=== PATIENT | female | born 1955 | race Caucasian/White ===

== ENCOUNTER 2016-09-20 12:55 | Emergency (ER) | payer BC ==
[2016-09-20] MEDS ORDERED: SODIUM CHLORIDE 0.9% 1,000 ML IV STA (13:04)
[2016-09-20 13:05] LABS: Glucose,Whole Blood 183 mg/dL (75-99)
--- NOTE | 2016-09-20 13:11 | ED ---
Seizure HPI - General Stated Complaint: seizure Time Seen by Provider: 09/20/16 12:55 Source: patient, family, EMS, RN notes reviewed Mode of arrival: EMS - History of Present Illness Initial Comments: This is a 61-year-old female with a history of insulin-dependent diabetes was shopping with her mother and a local store. She felt somewhat weak and did apparently put a hard candy in her mouth. She'll thereafter however she started becoming very weak and was helped out of the floor by her mother. She then had what appeared to be a tonic-clonic seizure-like episode lasting 3-4 minutes per witnesses. He was full-body. EMS was called and she was brought here for evaluation. Initial glucose per EMS was 70. She was post ictal per paramedics. She started responding more appropriately since her arrival to the hospital by ambulance. He currently is awake and alert but still confused to date and time she does know place. She does not know if she ate breakfast this morning or not. She is now she took her medications at this time. No trauma is reported. Per the mother the patient does have a history of a brain aneurysm it was apparently stable over multiple evaluations. MD Complaint: seizure, shaking, other - Related Data Home Medications Medication Instructions Recorded Confirmed Aspirin 325 mg PO DAILY 09/20/16 09/20/16 Cholecalciferol [Vitamin D3] 1,000 unit PO DAILY 09/20/16 09/20/16 DULoxetine HCL [Cymbalta] 60 mg PO HS 09/20/16 09/20/16 Insulin Glargine [Lantus] 50 unit SQ HS 09/20/16 09/20/16 Insulin Lispro [humaLOG Kwikpen] 50 unit SQ TID-W/MEALS 09/20/16 09/20/16 Levothyroxine Sodium [Synthroid] 125 mcg PO DAILY 09/20/16 09/20/16 Lisinopril [Prinivil] 5 mg PO DAILY 09/20/16 09/20/16 Multivitamins, Thera [Multivitamin 1 tab PO DAILY 09/20/16 09/20/16 (formulary)] [place]-3 Fatty Acids/Fish Oil [Fish 1 cap PO DAILY 09/20/16 09/20/16 Oil 1,000 mg Softgel] Rosuvastatin Calcium [Crestor] 5 mg PO HS 09/20/16 09/20/16 metFORMIN HCL 1,000 mg PO BID 09/20/16 09/20/16 Allergies Allergy/AdvReac Type Severity Reaction Status Date / Time latex AdvReac Unknown Verified 09/20/16 13:54 Review of Systems ROS Statement: Those systems with pertinent positive or pertinent negative responses have been documented in the HPI. ROS Other: All systems not noted in ROS Statement are negative. General Exam - General Exam Comments Initial Comments: This is a well-developed well-nourished awake alert but confused female General appearance: alert, anxious Head exam: Present: atraumatic, normocephalic, normal inspection Eye exam: Present: normal appearance, PERRL, EOMI. Absent: scleral icterus, conjunctival injection, periorbital swelling ENT exam: Present: mucous membranes moist, other (Ecchymosis a left side of the thumb consistent with a bite mk) Neck exam: Present: normal inspection. Absent: tenderness, meningismus, lymphadenopathy Respiratory exam: Present: normal lung sounds bilaterally. Absent: respiratory distress, wheezes, rales, rhonchi, stridor Cardiovascular Exam: Present: regular rate, normal rhythm, normal heart sounds. Absent: systolic murmur, diastolic murmur, rubs, gallop, clicks GI/Abdominal exam: Present: soft, normal bowel sounds. Absent: distended, tenderness, guarding, rebound, rigid Extremities exam: Present: normal inspection, full ROM, normal capillary refill. Absent: tenderness, pedal edema, joint swelling, calf tenderness Back exam: Present: tenderness, other (Multiple superficial abrasions noted over the back especially the right side. No step-off no crepitation no open wounds that will require repair.) Neurological exam: Present: alert, altered, CN II-XII intact Psychiatric exam: Present: anxious Skin exam: Present: warm, dry, intact, normal color. Absent: rash Course Vital Signs 09/20/16 09/20/16 09/20/16 13:09 14:09 15:11 Temperature 98.5 F 99.1 F Pulse Rate 114 H 97 82 Respiratory 22 18 18 Rate Blood Pressure 174/90 156/74 147/65 O2 Sat by Pulse 95 96 98 Oximetry - Reevaluation(s) Reevaluation #1: 09/20/16 16:29 Patient is fully become more aware of her surroundings and became awake alert oriented 3. Medical Decision Making - Medical Decision Making Evaluation of the patient finds be awake alert oriented history she is in full remembered severity to happen today. She states she only had a banana for breakfast today. The presentation is consistent with a hypoglycemic etiology of the events. I long discussion with the patient family member the patient will follow-up with her doctor I did advise and adequate diet and return if any problems. - Lab Data Result diagrams: 09/20/16 13:19 09/20/16 13:19 Lab Results 09/20/16 09/20/16 09/20/16 Range/Units 13:04 13:19 13:19 WBC 8.8 (3.8-10.6) k/uL RBC 4.66 (3.80-5.40) m/uL Hgb 14.8 (11.4-16.0) gm/dL Hct 45.9 (34.0-46.0) % MCV 98.4 (80.0-100.0) fL MCH 31.8 (25.0-35.0) pg MCHC 32.3 (31.0-37.0) g/dL RDW 12.8 (11.5-15.5) % Plt Count 284 (150-450) k/uL Neutrophils % 46 % Lymphocytes % 45 % Monocytes % 4 % Eosinophils % 2 % Basophils % 1 % Neutrophils # 4.1 (1.3-7.7) k/uL Lymphocytes # 4.0 (1.0-4.8) k/uL Monocytes # 0.3 (0-1.0) k/uL Eosinophils # 0.1 (0-0.7) k/uL Basophils # 0.1 (0-0.2) k/uL Sodium 141 (137-145) mmol/L Potassium 4.4 (3.5-5.1) mmol/L Chloride 106 (98-107) mmol/L Carbon Dioxide 17 L (22-30) mmol/L Anion Gap 18 mmol/L BUN 16 (7-17) mg/dL Creatinine 0.82 (0.52-1.04) mg/dL Est GFR (MDRD) Af Amer >60 (>60 ml/min/1.73 sqM) Est GFR (MDRD) Non-Af >60 (>60 ml/min/1.73 sqM) Glucose 157 H (74-99) mg/dL POC Glucose (mg/dL) 183 H (75-99) mg/dL POC Glu Data Officer ID Jeannie Ramey Calcium 9.8 (8.4-10.2) mg/dL Magnesium 2.0 (1.6-2.3) mg/dL Total Bilirubin 0.6 (0.2-1.3) mg/dL AST 50 H (14-36) U/L ALT 45 (9-52) U/L Alkaline Phosphatase 86 (38-126) U/L Total Creatine Kinase (30-135) U/L CK-MB (CK-2) (0.0-2.4) ng/mL CK-MB (CK-2) Rel Index Troponin I (0.000-0.034) ng/mL Total Protein 8.5 H (6.3-8.2) g/dL Albumin 4.8 (3.5-5.0) g/dL Urine Color Urine Appearance (Clear) Urine pH (5.0-8.0) Ur Specific [place] (1.001-1.035) Urine Protein (Negative) Urine Glucose (UA) (Negative) Urine Ketones (Negative) Urine Blood (Negative) Urine Nitrite (Negative) Urine Bilirubin (Negative) Urine Urobilinogen (<2.0) mg/dL Ur Leukocyte Esterase (Negative) Urine RBC (0-5) /hpf Urine WBC (0-5) /hpf Ur Squamous Epith Cells (0-4) /hpf Urine Bacteria (None) /hpf Hyaline Casts (0-2) /lpf Urine Opiates Screen (NotDetected) Ur Oxycodone Screen (NotDetected) Urine Methadone Screen (NotDetected) Ur Propoxyphene Screen (NotDetected) Ur Barbiturates Screen (NotDetected) U Tricyclic Antidepress (NotDetected) Ur Phencyclidine Scrn (NotDetected) Ur Amphetamines Screen (NotDetected) U Methamphetamines Scrn (NotDetected) U Benzodiazepines Scrn (NotDetected) Urine Cocaine Screen (NotDetected) U Marijuana (THC) Screen (NotDetected) Serum Alcohol <10 mg/dL 09/20/16 09/20/16 09/20/16 Range/Units 13:19 14:12 15:10 WBC (3.8-10.6) k/uL RBC (3.80-5.40) m/uL Hgb (11.4-16.0) gm/dL Hct (34.0-46.0) % MCV (80.0-100.0) fL MCH (25.0-35.0) pg MCHC (31.0-37.0) g/dL RDW (11.5-15.5) % Plt Count (150-450) k/uL Neutrophils % % Lymphocytes % % Monocytes % % Eosinophils % % Basophils % % Neutrophils # (1.3-7.7) k/uL Lymphocytes # (1.0-4.8) k/uL Monocytes # (0-1.0) k/uL Eosinophils # (0-0.7) k/uL Basophils # (0-0.2) k/uL Sodium (137-145) mmol/L Potassium (3.5-5.1) mmol/L Chloride (98-107) mmol/L Carbon Dioxide (22-30) mmol/L Anion Gap mmol/L BUN (7-17) mg/dL Creatinine (0.52-1.04) mg/dL Est GFR (MDRD) Af Amer (>60 ml/min/1.73 sqM) Est GFR (MDRD) Non-Af (>60 ml/min/1.73 sqM) Glucose (74-99) mg/dL POC Glucose (mg/dL) 84 (75-99) mg/dL POC Glu Data Officer ID James Payal Calcium (8.4-10.2) mg/dL Magnesium (1.6-2.3) mg/dL Total Bilirubin (0.2-1.3) mg/dL AST (14-36) U/L ALT (9-52) U/L Alkaline Phosphatase (38-126) U/L Total Creatine Kinase 299 H (30-135) U/L CK-MB (CK-2) 2.6 H* (0.0-2.4) ng/mL CK-MB (CK-2) Rel Index 0.9 Troponin I <0.012 (0.000-0.034) ng/mL Total Protein (6.3-8.2) g/dL Albumin (3.5-5.0) g/dL Urine Color Yellow Urine Appearance Clear (Clear) Urine pH 6.5 (5.0-8.0) Ur Specific [place] 1.015 (1.001-1.035) Urine Protein 1+ H (Negative) Urine Glucose (UA) Trace H (Negative) Urine Ketones Negative (Negative) Urine Blood Small H (Negative) Urine Nitrite Negative (Negative) Urine Bilirubin Negative (Negative) Urine Urobilinogen <2.0 (<2.0) mg/dL Ur Leukocyte Esterase Negative (Negative) Urine RBC 2 (0-5) /hpf Urine WBC 1 (0-5) /hpf Ur Squamous Epith Cells <1 (0-4) /hpf Urine Bacteria Rare H (None) /hpf Hyaline Casts 1 (0-2) /lpf Urine Opiates Screen Not Detected (NotDetected) Ur Oxycodone Screen Not Detected (NotDetected) Urine Methadone Screen Not Detected (NotDetected) Ur Propoxyphene Screen Not Detected (NotDetected) Ur Barbiturates Screen Not Detected (NotDetected) U Tricyclic Antidepress Not Detected (NotDetected) Ur Phencyclidine Scrn Not Detected (NotDetected) Ur Amphetamines Screen Not Detected (NotDetected) U Methamphetamines Scrn Not Detected (NotDetected) U Benzodiazepines Scrn Not Detected (NotDetected) Urine Cocaine Screen Not Detected (NotDetected) U Marijuana (THC) Screen Not Detected (NotDetected) Serum Alcohol mg/dL - EKG Data -: EKG Interpreted by Id EKG shows normal: sinus rhythm (Eyes tachycardia with a rate of 115, IN interval 154, QRS duration 74, QT/QTC intervals 332/459 this is an otherwise normal EKG.) - Radiology Data Radiology results: report reviewed (Did review the imaging and reports no acute findings there all stable.), image reviewed Disposition Clinical Impression: Hypoglycemia due to insulin, Seizure, Multiple abrasions Disposition: HOME SELF-CARE Condition: Good Instructions: New-Onset Seizure in Adults (ED), Hypoglycemia in a Person with Diabetes (ED), Abrasion (ED) Additional Instructions: Increase oral fluids, return if any problems, no driving for the next several days until cleared by Dr. Romano
[2016-09-20 13:38] LABS: Basophils # (A) 0.1 k/uL (0-0.2); Basophils % (A) 1 %; CH 32.1; CHCM 32.8; Eosinophils # (A) 0.1 k/uL (0-0.7); Eosinophils % (A) 2 %; HCT 45.9 % (34.0-46.0); HDW 2.43; HGB 14.8 gm/dL (11.4-16.0); Luc # (Auto) 0.21; Luc % (Auto) 2; Lymphocytes % (A) 45 %; MCH 31.8 pg (25.0-35.0); MCHC 32.3 g/dL (31.0-37.0); MCV 98.4 fL (80.0-100.0); Mean Platelet Volume 7.5; Monocytes # (A) 0.3 k/uL (0-1.0); Monocytes % (A) 4 %; Neutrophils # (A) 4.1 k/uL (1.3-7.7); Neutrophils % (A) 46 %; RBC 4.66 m/uL (3.80-5.40); RDW 12.8 % (11.5-15.5); WBC 8.8 k/uL (3.8-10.6); WBC (Perox) 8.63
[2016-09-20 13:54] LABS: ALT 45 U/L (9-52); AST 50 U/L (14-36); Alcohol <10 mg/dL; Alkaline Phosphatase 86 U/L (38-126); Anion Gap 18 mmol/L; Blood Urea Nitrogen 16 mg/dL (7-17); Calcium 9.8 mg/dL (8.4-10.2); Carbon Dioxide 17 mmol/L (22-30); Chloride 106 mmol/L (98-107); Glucose 157 mg/dL (74-99); Non-African American GFR(MDRD) >60 (>60 ml/min/1.73 sqM); Potassium 4.4 mmol/L (3.5-5.1); Sodium 141 mmol/L (137-145); Total Bilirubin 0.6 mg/dL (0.2-1.3); Total Protein 8.5 g/dL (6.3-8.2)
[2016-09-20 14:10] VITALS: RESP 18
[2016-09-20 14:10] LABS: Creatine Kinase 299 U/L (30-135)
--- NOTE | 2016-09-20 14:12 | CT ---
EXAMINATION TYPE: CT brain wo con DATE OF EXAM: 09/20/2016 2:07 PM COMPARISON: NONE HISTORY: 61 year-old female possible seizure TECHNIQUE: Examination was done in axial plane without intravenous contrast. Coronal and sagittal r econstructions performed. CT DLP: 1054.2 mGycm Automated exposure control for dose reduction was used. FINDINGS: There is no evidence of acute intracranial hemorrhage, acute ischemic changes, mass, mass-effect, or extra-axial fluid collection. There is no effacement of cerebral sulci or basal subarachnoid cister ns. There is no hydrocephalus. Slight asymmetric prominence to the left lateral ventricle likely on a congenital basis. There is no midline shift. Ramos-white matter distinction is preserved. Rightward nasal septal deviation and polyp or mucosal retention cyst within the left maxillary sinus. Mastoid air cells well pneumatized. Orbits and globes are intact. IMPRESSION: No acute intracranial abnormality seen.
[2016-09-20 14:13] LABS: Glucose,Whole Blood 84 mg/dL (75-99)
[2016-09-20 14:23] LABS: Troponin I <0.012 ng/mL (0.000-0.034)
[2016-09-20 14:35] LABS: Creatine Kinase MB 2.6 ng/mL (0.0-2.4)
[2016-09-20 15:36] LABS: Appearance,Urine Clear (Clear); Bacteria,Urine Rare /hpf; Bilirubin,Urine Negative (Negative); Glucose,Urine (UA) Trace (Negative); Ketones,Urine Negative (Negative); Leukocyte Esterase,Urine Negative (Negative); Nitrite,Urine Negative (Negative); PH, Urine 6.5 (5.0-8.0); Particle Count 1001; Protein,Urine 1+ (Negative); RBC,Urine 2 /hpf (0-5); Specific Gravity,Urine 1.015 (1.001-1.035); Squamous Epithelial Cell,Urine <1 /hpf (0-4); UA Billing (MACRO vs. MICRO) MICRO; Urobilinogen,Urine <2.0 mg/dL (<2.0); WBC,Urine 1 /hpf (0-5)
[2016-09-20 16:53] LABS: Glucose,Whole Blood 89 mg/dL (75-99)
[2016-09-20 17:04] VITALS: BP 138/62; PULSE 93; TEMP 97.9
== END 2016-09-20 16:59 | disposition home or self-care (01) ==
LOC: EC 12:55
DX: S30.810A Abrasion of lower back and pelvis, initial encounter (principal); E16.0 Drug-induced hypoglycemia without coma; R56.9 Unspecified convulsions; Z79.4 Long term (current) use of insulin; Z79.82 Long term (current) use of aspirin; Z91.040 Latex allergy status; Z79.899 Other long term (current) drug therapy; W18.30XA Fall on same level, unspecified, initial encounter
CPT/HCPCS: 36415; 70450; 80053; 80306; 80320; 81001; 82550; 82553; 83735; 84484; 85025; 93005; 96360; 96361; 99285

== ENCOUNTER 2017-09-12 10:32 | Inpatient (IN) | payer BC ==
[2017-09-12] MEDS ORDERED: PANTOPRAZOLE 40 MG/10 ML VIAL IVP STA (11:25)
[2017-09-12] MEDS ORDERED: ONDANSETRON 4 MG/2 ML VIAL IVP STA (11:25)
[2017-09-12] MEDS ORDERED: SODIUM CHLORIDE 0.9% 500 ML IV STA (11:25)
[2017-09-12] MEDS ORDERED: SODIUM CHLORIDE 0.9% 1,000 ML IV STA (11:25)
[2017-09-12 12:09] LABS: Basophils % (A) 0 %; Eosinophils # (A) 0.1 k/uL (0-0.7); Eosinophils % (A) 1 %; HCT 41.6 % (34.0-46.0); HGB 14.3 gm/dL (11.4-16.0); Lymphocytes # (A) 1.7 k/uL (1.0-4.8); Lymphocytes % (A) 18 %; MCH 31.5 pg (25.0-35.0); MCHC 34.4 g/dL (31.0-37.0); MCV 91.5 fL (80.0-100.0); Mean Platelet Volume 7.8; Monocytes # (A) 0.3 k/uL (0-1.0); Monocytes % (A) 3 %; Neutrophils # (A) 7.1 k/uL (1.3-7.7); Neutrophils % (A) 77 %; Platelet Count 239 k/uL (150-450); RBC 4.55 m/uL (3.80-5.40); RDW 12.6 % (11.5-15.5); WBC 9.2 k/uL (3.8-10.6)
[2017-09-12 12:17] LABS: ALT 42 U/L (9-52); AST 38 U/L (14-36); Albumin 4.7 g/dL (3.5-5.0); Alkaline Phosphatase 79 U/L (38-126); Anion Gap 17 mmol/L; Blood Urea Nitrogen 16 mg/dL (7-17); Calcium 9.9 mg/dL (8.4-10.2); Carbon Dioxide 25 mmol/L (22-30); Chloride 99 mmol/L (98-107); Glucose 216 mg/dL (74-99); Lipase 84 U/L (23-300); Magnesium 1.5 mg/dL (1.6-2.3); Potassium 4.4 mmol/L (3.5-5.1); Sodium 141 mmol/L (137-145); Total Bilirubin 0.5 mg/dL (0.2-1.3); Total Protein 8.1 g/dL (6.3-8.2)
[2017-09-12] MEDS ORDERED: RX INFO: IV CONTRAST WAS GIVEN 1 EACH MISC MISCELLANE PRN (12:18)
--- NOTE | 2017-09-12 12:18 | ED ---
General Adult HPI - General Chief complaint: GI Bleed Stated complaint: GI bleed Time Seen by Provider: 09/12/17 11:22 Source: patient, RN notes reviewed, old records reviewed Mode of arrival: wheelchair Limitations: physical limitation - History of Present Illness Initial comments: This is a 62-year-old female the ER for evaluation. Patient's last ER prevention of bowel pain. Epigastric to left lower quadrant abdominal pain. Patient has history of similar symptoms. Has history of colonoscopy showing diverticulosis. Patient had a blood in stool since this morning 3. No feelings of lightheadedness or dizziness, does have continued cramping. No fevers. - Related Data Home Medications Medication Instructions Recorded Confirmed Cholecalciferol [Vitamin D3] 1,000 unit PO DAILY 09/20/16 09/12/17 Insulin Lispro [humaLOG Kwikpen] See Protocol SQ TID-W/MEALS 09/20/16 09/12/17 Levothyroxine Sodium [Synthroid] 125 mcg PO DAILY 09/20/16 09/12/17 Multivitamins, Thera [Multivitamin 1 tab PO DAILY 09/20/16 09/12/17 (formulary)] [place]-3 Fatty Acids/Fish Oil [Fish 1 cap PO DAILY 09/20/16 09/12/17 Oil 1,000 mg Softgel] Rosuvastatin Calcium [Crestor] 5 mg PO HS 09/20/16 09/12/17 Aspirin 81 mg PO DAILY 09/12/17 09/12/17 Calcium Carbonate/Vitamin D3 1 tab PO TID 09/12/17 09/12/17 [Calcium 600-Vit D3 400 Caplet] Chlorthalidone [Hygroton] 25 mg PO DAILY 09/12/17 09/12/17 Cyanocobalamin (Vitamin B-12) 1,000 mcg PO DAILY 09/12/17 09/12/17 [Vitamin B-12] DULoxetine HCL [Cymbalta] 30 mg PO DAILY 09/12/17 09/12/17 Insulin Glargine,Hum.rec.anlog 50 unit SQ HS 09/12/17 09/12/17 [Lantus Solostar] Losartan Potassium 50 mg PO DAILY 09/12/17 09/12/17 Magnesium 200 mg PO DAILY 09/12/17 09/12/17 Zinc 50 mg PO DAILY 09/12/17 09/12/17 metFORMIN HCL ER [Glucophage Xr] 1,000 mg PO BID 09/12/17 09/12/17 Allergies Allergy/AdvReac Type Severity Reaction Status Date / Time latex AdvReac Unknown Verified 09/12/17 12:08 lisinopril AdvReac Cough Verified 09/12/17 12:08 Review of Systems ROS Statement: Those systems with pertinent positive or pertinent negative responses have been documented in the HPI. ROS Other: All systems not noted in ROS Statement are negative. Past Medical History Past Medical History: CVA/TIA, Diabetes Mellitus, Fibromyalgia, Hypertension, Seizure Disorder Additional Past Medical History / Comment(s): hx of aneurysm. History of Any Multi-Drug Resistant Organisms: None Reported Past Surgical History: Section Additional Past Surgical History / Comment(s): breast biposy. parathyriodectomy, arthroscopy, carpal tunnel bilat, bilat blepharoplasty. Past Psychological History: No Psychological Hx Reported Smoking Status: Never smoker Past Alcohol Use History: None Reported Past Drug Use History: None Reported General Exam Limitations: physical limitation General appearance: alert, in no apparent distress Head exam: Present: atraumatic, normocephalic, normal inspection Eye exam: Present: normal appearance, PERRL, EOMI. Absent: scleral icterus, conjunctival injection, periorbital swelling ENT exam: Present: normal exam, mucous membranes moist Neck exam: Present: normal inspection. Absent: tenderness, meningismus, lymphadenopathy Respiratory exam: Present: normal lung sounds bilaterally. Absent: respiratory distress, wheezes, rales, rhonchi, stridor Cardiovascular Exam: Present: regular rate, normal rhythm, normal heart sounds. Absent: systolic murmur, diastolic murmur, rubs, gallop, clicks GI/Abdominal exam: Present: soft, normal bowel sounds. Absent: distended, tenderness, guarding, rebound, rigid Extremities exam: Present: normal inspection, full ROM, normal capillary refill. Absent: tenderness, pedal edema, joint swelling, calf tenderness Back exam: Present: normal inspection Neurological exam: Present: alert, oriented X3, CN II-XII intact Psychiatric exam: Present: normal affect, normal mood Skin exam: Present: warm, dry, intact, normal color. Absent: rash Course Vital Signs 09/12/17 09/12/17 09/12/17 11:15 11:54 13:19 Temperature 99.4 F Pulse Rate 95 72 Respiratory 18 16 Rate Blood Pressure 136/68 131/60 133/60 O2 Sat by Pulse 95 95 Oximetry - Reevaluation(s) Reevaluation #1: 09/12/17 14:15 Patient has no active bleeding here in the ER, no symptoms of syncope EKG Findings - EKG Comments: EKG Findings:: EKG shows sinus rhythm rate 73, NH 150, QRS 80, QTC 426 Medical Decision Making - Medical Decision Making 62 female the ER for evaluation of blood per rectum history of diverticulitis. Left lower quadrant abdominal pain diffuse abdominal pain. Pain is resolved, patient is no nausea vomiting. To be admitted for GI eval, prior colonoscopy by Dr Worthington - Lab Data Result diagrams: 09/12/17 11:50 09/12/17 11:50 Lab Results 09/12/17 09/12/17 09/12/17 Range/Units 11:50 11:50 11:50 WBC 9.2 (3.8-10.6) k/uL RBC 4.55 (3.80-5.40) m/uL Hgb 14.3 (11.4-16.0) gm/dL Hct 41.6 (34.0-46.0) % MCV 91.5 (80.0-100.0) fL MCH 31.5 (25.0-35.0) pg MCHC 34.4 (31.0-37.0) g/dL RDW 12.6 (11.5-15.5) % Plt Count 239 (150-450) k/uL Neutrophils % 77 % Lymphocytes % 18 % Monocytes % 3 % Eosinophils % 1 % Basophils % 0 % Neutrophils # 7.1 (1.3-7.7) k/uL Lymphocytes # 1.7 (1.0-4.8) k/uL Monocytes # 0.3 (0-1.0) k/uL Eosinophils # 0.1 (0-0.7) k/uL Basophils # 0.0 (0-0.2) k/uL PT (9.0-12.0) sec INR (<1.2) APTT (22.0-30.0) sec Sodium 141 (137-145) mmol/L Potassium 4.4 (3.5-5.1) mmol/L Chloride 99 (98-107) mmol/L Carbon Dioxide 25 (22-30) mmol/L Anion Gap 17 mmol/L BUN 16 (7-17) mg/dL Creatinine 0.60 (0.52-1.04) mg/dL Est GFR (CKD-EPI)AfAm >90 (>60 ml/min/1.73 sqM) Est GFR (CKD-EPI)NonAf >90 (>60 ml/min/1.73 sqM) Glucose 216 H (74-99) mg/dL Calcium 9.9 (8.4-10.2) mg/dL Magnesium 1.5 L (1.6-2.3) mg/dL Total Bilirubin 0.5 (0.2-1.3) mg/dL AST 38 H (14-36) U/L ALT 42 (9-52) U/L Alkaline Phosphatase 79 (38-126) U/L Total Creatine Kinase 277 H (30-135) U/L CK-MB (CK-2) 2.2 (0.0-2.4) ng/mL CK-MB (CK-2) Rel Index 0.8 Troponin I <0.012 (0.000-0.034) ng/mL Total Protein 8.1 (6.3-8.2) g/dL Albumin 4.7 (3.5-5.0) g/dL Lipase 84 (23-300) U/L Blood Type Blood Type Confirm Blood Type Recheck Antibody Screen Spec Expiration Date 09/12/17 09/12/17 09/12/17 Range/Units 11:50 13:15 13:15 WBC (3.8-10.6) k/uL RBC (3.80-5.40) m/uL Hgb (11.4-16.0) gm/dL Hct (34.0-46.0) % MCV (80.0-100.0) fL MCH (25.0-35.0) pg MCHC (31.0-37.0) g/dL RDW (11.5-15.5) % Plt Count (150-450) k/uL Neutrophils % % Lymphocytes % % Monocytes % % Eosinophils % % Basophils % % Neutrophils # (1.3-7.7) k/uL Lymphocytes # (1.0-4.8) k/uL Monocytes # (0-1.0) k/uL Eosinophils # (0-0.7) k/uL Basophils # (0-0.2) k/uL PT 10.9 (9.0-12.0) sec INR 1.1 (<1.2) APTT 22.9 (22.0-30.0) sec Sodium (137-145) mmol/L Potassium (3.5-5.1) mmol/L Chloride (98-107) mmol/L Carbon Dioxide (22-30) mmol/L Anion Gap mmol/L BUN (7-17) mg/dL Creatinine (0.52-1.04) mg/dL Est GFR (CKD-EPI)AfAm (>60 ml/min/1.73 sqM) Est GFR (CKD-EPI)NonAf (>60 ml/min/1.73 sqM) Glucose (74-99) mg/dL Calcium (8.4-10.2) mg/dL Magnesium (1.6-2.3) mg/dL Total Bilirubin (0.2-1.3) mg/dL AST (14-36) U/L ALT (9-52) U/L Alkaline Phosphatase (38-126) U/L Total Creatine Kinase (30-135) U/L CK-MB (CK-2) (0.0-2.4) ng/mL CK-MB (CK-2) Rel Index Troponin I (0.000-0.034) ng/mL Total Protein (6.3-8.2) g/dL Albumin (3.5-5.0) g/dL Lipase (23-300) U/L Blood Type AB Negative Blood Type Confirm AB Negative Blood Type Recheck CABO Indicated Antibody Screen NEGATIVE Spec Expiration Date 09/15/2017 - 8561 - Radiology Data Radiology results: report reviewed (CT abdomen pelvis negative), image reviewed Disposition Clinical Impression: Gastrointestinal hemorrhage Disposition: ADMITTED IP TO THIS [facility] Condition: Fair Instructions: Gastrointestinal Bleeding (ED) Is patient prescribed a controlled substance at discharge?: No If prescribed controlled substance>3 days was MAPS reviewed?: No When asked, does pt state using other controlled substances?: No Referrals: Coleman Romano DO [Primary Care Provider] - 1-2 days
[2017-09-12 12:28] LABS: Creatine Kinase 277 U/L (30-135)
[2017-09-12 12:41] LABS: Creatine Kinase MB 2.2 ng/mL (0.0-2.4); Troponin I <0.012 ng/mL (0.000-0.034)
[2017-09-12] MEDS ORDERED: DICYCLOMINE 10 MG/ML 2 ML AMP IM STA (13:13)
--- NOTE | 2017-09-12 13:24 | CT ---
EXAMINATION TYPE: CT abdomen pelvis w con DATE OF EXAM: 09/12/2017 COMPARISON: NONE HISTORY: GI bleed CT DLP: 1670.1 mGycm Automated exposure control for dose reduction was used. TECHNIQUE: Helical acquisition of images from the lung bases through the pelvis have been completed. CONTRAST: Performed without Oral Contrast and with IV Contrast, patient injected with 100 mL of Isovue 300. FINDINGS: LUNG BASES: No significant abnormality is appreciated. Some minimal dependent atelectatic changes are present AORTA: No significant abnormality is appreciated. LIVER/GB: Liver shows low attenuation and is enlarged. Gallbladder is somewhat contracted. PANCREAS: No significant abnormality is seen. SPLEEN: No significant abnormality is seen. ADRENALS: No significant abnormality is seen. KIDNEYS: Nonobstructive calculus is present in the midpole right kidney measuring 3.8 cm, there may b e a mild UPJ obstruction on the right, there is mild pelvic caliectasis present on the right. REPRODUCTIVE ORGANS: No significant abnormality is seen BOWEL: Transverse and descending colon shows questionable wall thickening, edematous change, questio nable pericolonic inflammatory changes present at the level of the descending colon, some scattered d iverticula are noted. The appendix is not seen. FREE AIR: No Free Air visible. ASCITES: None visible. PELVIC ADENOPATHY: None visualized. RETROPERITONEAL ADENOPATHY: No Retroperitoneal Adenopathy visible. URINARY BLADDER: No significant abnormality is seen. OSSEOUS STRUCTURES: No significant abnormality is seen. IMPRESSION: CORRELATE FOR POSSIBLE COLITIS. DIVERTICULOSIS. HEPATIC STEATOSIS. NONOBSTRUCTIVE RIGHT NEPHROLITHIAS IS. POSSIBLE URETEROPELVIC JUNCTION OBSTRUCTION.
[2017-09-12 13:39] LABS: INR 1.1 (<1.2); Partial Thromboplastin Time 22.9 sec (22.0-30.0); Prothrombin Time 10.9 sec (9.0-12.0)
[2017-09-12] MEDS ORDERED: ONDANSETRON 4 MG/2 ML VIAL IVP PRN (15:10)
[2017-09-12 16:42] LABS: Glucose,Whole Blood 127 mg/dL (75-99)
[2017-09-12] MEDS: INSULIN ASPART 100 UNIT/ML 1 ML 10 ML VIAL SQ SCH ×2 (17:13→21:33)
[2017-09-12] MEDS ORDERED: DICYCLOMINE 10 MG/ML 2 ML AMP IM PRN (18:00)
[2017-09-12] MEDS: ATORVASTATIN 10 MG TAB PO SCH (20:09)
[2017-09-12 20:59] LABS: Glucose,Whole Blood 157 mg/dL (75-99)
[2017-09-12] MEDS: INSULIN DETEMIR 100 UNIT/ML 10 ML VIAL SQ SCH (21:33)
[2017-09-12] MEDS ORDERED: ALPRAZolam 0.25 MG TAB PO PRN (23:46)
[2017-09-12] MEDS ORDERED: NALOXONE 0.4 MG/ML 1 ML VIAL IV PRN (23:46)
[2017-09-12] MEDS ORDERED: MELATONIN 3 MG TABLET PO PRN (23:46)
[2017-09-12] MEDS ORDERED: ACETAMINOPHEN TAB 325 MG TAB PO PRN (23:46)
[2017-09-13] MEDS: PIPERACILLIN-TAZOBACTAM 3.375 GM in DEXTROSE/WATER 1 50ML.BAG IVPB SCH ×3 (00:21→17:17)
--- NOTE | 2017-09-13 00:30 | HP ---
HISTORY AND PHYSICAL DATE OF SERVICE: 09/12/2017. PRESENT COMPLAINT: Bleeding. HISTORY OF PRESENT ILLNESS: A pleasant 62-year-old patient of Dr. Romano. Chronic stable medical conditions include asthma, diabetes, fibromyalgia, hypertension, hyperlipidemia, seizure disorder, obstructive sleep apnea uses CPAP machine, and a small cerebral aneurysm being followed by neurosurgeon, Dr. Coronado. Around 3 o'clock this morning the patient developed severe abdominal cramping, initially had dark brown stools, then followed by fresh stools. Patient had multiple episodes, even after presenting to the hospital had 4 more episodes. Still having abdominal cramping. No nausea or vomiting. No fever. Feeling tired and run down. CT scan in the ER did show diffuse thickening of the colon. REVIEW OF SYSTEMS: CONSTITUTIONAL: Tired. HEENT: None. RESPIRATORY: None. CARDIOVASCULAR: None. GASTROINTESTINAL: As above. GENITOURINARY: None. MUSCULOSKELETAL: Some pain in the joints. DERMATOLOGIC: None. HEMATOLOGIC: None. LYMPHATIC: None. PSYCHIATRY: None. NEUROLOGIC: No residual of prior stroke. PAST MEDICAL HISTORY: Asthma, stroke, GERD, diabetes, fibromyalgia, hypertension, hyperlipidemia, seizure disorder, sleep apnea uses machine, small cerebral aneurysm, diverticulitis, kidney stones. PAST SURGICAL HISTORY: , cardiac catheterization, breast biopsy, breast reduction, parathyroidectomy, arthroscopy, carpal tunnel bilateral, ptosis repair bilateral. SOCIAL HISTORY: . Does not smoke. Alcohol rarely. FAMILY HISTORY: Hyperlipidemia, thyroid disorder, cardiomyopathy. HOME MEDICATIONS: 1. Zinc 50 mg p.o. daily. 2. Magnesium 200 mg p.o. daily. 3. Vitamin B12, 1000 mcg p.o. daily. 4. Calcium 600. 5. Vitamin D3, 1 tab p.o. t.i.d. 6. Losartan 50 mg p.o. daily. 7. Cymbalta 30 mg p.o. daily. 8. Chlorthalidone 25 mg p.o. daily. 9. Aspirin 81 mg p.o. daily. 10.Glucophage XR 1000 mg p.o. b.i.d. 11.Lantus 50 units subcu at bedtime. 12.Crestor 5 mg p.o. at bedtime. 13.Fish oil 1000 mg 1 capsule p.o. daily. 14.Multivitamin 1 tab p.o. daily. 15.Synthroid 125 mcg p.o. daily. 16.Humalog quick pen t.i.d. with meals. 17.Vitamin D3, 1000 units p.o. daily. ALLERGIES: LATEX, LISINOPRIL. PHYSICAL EXAMINATION: Vital signs on presentation, temperature 99.4, pulse 95, respiratory 18, blood pressure 136/68, pulse ox 95% on room air. GENERAL APPEARANCE: Well built. BMI 32.6. Lying in bed, tired appearing. EYES: Pupils equal. Conjunctivae normal. HEENT: External appearance of nose and ears normal. Oral cavity normal. NECK: JVD not raised. Mass not palpable. Respiratory effort normal. LUNGS: Fair entry. CARDIOVASCULAR: 1st and 2nd sounds normal. No edema. ABDOMEN: Mild diffuse tenderness. No guarding or rigidity. Liver and spleen not palpable. LYMPHATIC: No lymph nodes palpable in neck or axillae. PSYCHIATRY: Alert and oriented x3. Mood and affect normal. NEUROLOGIC: Pupils equal. Cranial nerves grossly intact. Power and sensation grossly intact. INVESTIGATIONS: White count 9.2, hemoglobin 14.3 potassium 4.4. BUN and creatinine normal. Accu-Cheks are noted. CT scan of the abdomen and pelvis shows transverse and descending colon showing possible wall thickening with edematous changes. Some scattered diverticula. ASSESSMENT: 1. Acute colitis affecting the transverse and descending colon. This well could be ischemic. Cannot rule out infective cause, though likely ischemic. 2. Intermittent asthma. 3. Diabetes mellitus type 2, chronically on insulin. 4. Chronic fibromyalgia. 5. Hyperlipidemia. 6. Essential hypertension. 7. Obstructive sleep apnea, uses CPAP machine. 8. Small chronic cerebral aneurysm, being followed by Dr. Coronado. PLAN: The patient will be started on IV Zosyn. Will be made n.p.o. except for ice chips and medications. Care was discussed with the patient. Also decrease the dose of Levemir to 40 units and follow Accu-Cheks closely. Surgical consultation was placed from the ER. Care was discussed with the patient. MMODL / IJN: [id number] /
[2017-09-13 01:33] LABS: Basophils # (A) 0.1 k/uL (0-0.2); Basophils % (A) 1 %; Eosinophils # (A) 0.1 k/uL (0-0.7); Eosinophils % (A) 1 %; HCT 37.4 % (34.0-46.0); HGB 13.2 gm/dL (11.4-16.0); Lymphocytes # (A) 3.7 k/uL (1.0-4.8); Lymphocytes % (A) 38 %; MCH 32.4 pg (25.0-35.0); MCHC 35.4 g/dL (31.0-37.0); MCV 91.7 fL (80.0-100.0); Mean Platelet Volume 7.6; Monocytes # (A) 0.5 k/uL (0-1.0); Monocytes % (A) 5 %; Neutrophils # (A) 5.1 k/uL (1.3-7.7); Neutrophils % (A) 54 %; Platelet Count 236 k/uL (150-450); RBC 4.08 m/uL (3.80-5.40); RDW 12.7 % (11.5-15.5); WBC 9.6 k/uL (3.8-10.6)
[2017-09-13 04:44] LABS: Hemoglobin A1C 6.6 % (4.0-6.0)
[2017-09-13] MEDS: LEVOTHYROXINE 125 MCG TAB PO SCH (06:10)
[2017-09-13 07:20] LABS: Glucose,Whole Blood 147 mg/dL (75-99)
[2017-09-13 08:09] LABS: Basophils # (A) 0.1 k/uL (0-0.2); Basophils % (A) 1 %; Eosinophils # (A) 0.1 k/uL (0-0.7); Eosinophils % (A) 1 %; HCT 39.9 % (34.0-46.0); HGB 13.2 gm/dL (11.4-16.0); Lymphocytes # (A) 3.5 k/uL (1.0-4.8); Lymphocytes % (A) 39 %; MCHC 33.1 g/dL (31.0-37.0); MCV 93.6 fL (80.0-100.0); Mean Platelet Volume 7.5; Monocytes # (A) 0.5 k/uL (0-1.0); Monocytes % (A) 5 %; Neutrophils # (A) 4.7 k/uL (1.3-7.7); Neutrophils % (A) 53 %; Platelet Count 229 k/uL (150-450); RBC 4.26 m/uL (3.80-5.40); RDW 12.8 % (11.5-15.5); WBC 8.9 k/uL (3.8-10.6)
[2017-09-13] MEDS: LOSARTAN 50 MG TAB PO SCH (08:24)
[2017-09-13] MEDS: DULoxetine HCL 30 MG CAPSULE.DR PO SCH (08:24)
[2017-09-13] MEDS: INSULIN ASPART 100 UNIT/ML 1 ML 10 ML VIAL SQ SCH ×4 (08:25→21:18)
[2017-09-13] MEDS: ZINC SULFATE 220 MG CAP PO SCH (08:25)
[2017-09-13] MEDS: MAGNESIUM OXIDE 400 MG TAB PO SCH (08:25)
[2017-09-13] MEDS ORDERED: DICYCLOMINE 10 MG CAP PO PRN (12:16)
--- NOTE | 2017-09-13 12:16 | P.GSCN ---
History of Present Illness Consult date: 09/13/17 Reason for Consult: Gastrointestinal bleeding History of present illness: Thank you very much for asking me to see Ms. Vela. She is a very pleasant 62 -year-old white female well known to me. She had a colonoscopy by myself in 2010 and was found to have moderate diverticulosis uncomplicated and some mild erythema throughout the colon consistent with the clinically while colitis but biopsies came back normal. She's had no issues subsequently. She thought was due to have a follow-up colonoscopy a few months ago but developed a TIA and this was postponed. Patient developed the some abdominal cramping in the early hours of 30 yesterday morning I some bright red blood per rectum. She states she had several episodes of bright red blood nipple. She presented to the emergency room. Was found to have bright red blood also in the ER and subsequently after being admitted. She however states that the amount of bleeding is small amount a few teaspoonful time and less frequent. Her hemoglobin has been fairly stable since admission. Did have one episode of emesis with the cramps at home but none since then. She does take aspirin 325 mg daily. Past history social history family history well-documented on this admission and reviewed. Positive for diabetes hypertension is hysterectomy cholecystectomy. Occasions as listed including aspirin. ALLERGIES. Latex and lisinopril. Optical Dispenser review reviewed. No current chest pain. No dizziness. No urinary symptoms. No vaginal discharge or bleeding. Her problems currently. On examination the patient is well-built well-nourished a little overweight. Vitals are stable heart rate 78 a minute color satisfactory hydration borderline. Head and neck otherwise normal. Heart regular rhythm. Abdomen is fairly soft but she has mild to moderate tenderness in the left lower quadrant but no guarding or rebound or rigidity. Has well-healed lower midline scar. No masses or organomegaly noted. 30 studies reviewed. Hemoglobin on admission was 14.1. However the last 12 hours it's been stable around 13.2. W BCs normal. CT was reviewed. Some thickening of the colonic wall with edema which may be nonspecific. Also evidence of some inflammatory changes in the left lower quadrant chest consistent with probably diverticulitis. The stones asymptomatic. Impression. Lower GI bleed most likely diverticular in nature probably from acute inflammatory changes in the sigmoid area this may be secondary to acute diverticulitis. Recommendation at her management would restriction of diet. Monitor hemoglobin and the bleeding. It looks like it subsiding. We will hold off with any interventional measures right now in the face of acute inflammation. Continue IV antibiotics. Would recommend no colonoscopy electively. Be glad to follow with you. Past Medical History Past Medical History: Asthma, CVA/TIA, Diabetes Mellitus, Fibromyalgia, GI Bleed , Hyperlipidemia, Hypertension, Seizure Disorder, Sleep Apnea/CPAP/BIPAP Additional Past Medical History / Comment(s): hx of cerebral aneurysm. "polymyocytosis", "diverticulitis", kidney stone, past migraines. tia august 2016 and 10 days later had a seizure-never put on meds for it. History of Any Multi-Drug Resistant Organisms: None Reported Past Surgical History: Section, Heart Catheterization Additional Past Surgical History / Comment(s): breast biposy. breast reduction , parathyriodectomy,arthroscopy lt knee, carpal tunnel bilat, bilat. ptosis repair chidi eyes, colonoscopy. Past Anesthesia/Blood Transfusion Reactions: No Reported Reaction Smoking Status: Former smoker - Past Family History Mother Family Medical History: Hyperlipidemia, Thyroid Disorder Father Additional Family Medical History / Comment(s): aortic valve replacement/ cardiomyopathy Medications and Allergies Home Medications Medication Instructions Recorded Confirmed Type Cholecalciferol [Vitamin D3] 1,000 unit PO DAILY 09/20/16 09/12/17 History Insulin Lispro [humaLOG Kwikpen] See Protocol SQ TID-W/MEALS 09/20/16 09/12/17 History Levothyroxine Sodium [Synthroid] 125 mcg PO DAILY 09/20/16 09/12/17 History Multivitamins, Thera [Multivitamin 1 tab PO DAILY 09/20/16 09/12/17 History (formulary)] [place]-3 Fatty Acids/Fish Oil [Fish 1 cap PO DAILY 09/20/16 09/12/17 History Oil 1,000 mg Softgel] Rosuvastatin Calcium [Crestor] 5 mg PO HS 09/20/16 09/12/17 History Aspirin 81 mg PO DAILY 09/12/17 09/12/17 History Calcium Carbonate/Vitamin D3 1 tab PO TID 09/12/17 09/12/17 History [Calcium 600-Vit D3 400 Caplet] Chlorthalidone [Hygroton] 25 mg PO DAILY 09/12/17 09/12/17 History Cyanocobalamin (Vitamin B-12) 1,000 mcg PO DAILY 09/12/17 09/12/17 History [Vitamin B-12] DULoxetine HCL [Cymbalta] 30 mg PO DAILY 09/12/17 09/12/17 History Insulin Glargine,Hum.rec.anlog 50 unit SQ HS 09/12/17 09/12/17 History [Lantus Solostar] Losartan Potassium 50 mg PO DAILY 09/12/17 09/12/17 History Magnesium 200 mg PO DAILY 09/12/17 09/12/17 History Zinc 50 mg PO DAILY 09/12/17 09/12/17 History metFORMIN HCL ER [Glucophage Xr] 1,000 mg PO BID 09/12/17 09/12/17 History Allergies Allergy/AdvReac Type Severity Reaction Status Date / Time latex AdvReac Unknown Verified 09/12/17 12:08 lisinopril AdvReac Cough Verified 09/12/17 12:08 Surgical - Exam Vital Signs Temp Pulse Resp BP Pulse Ox 99.4 F 95 18 136/68 95 09/12/17 11:15 09/12/17 11:15 09/12/17 11:15 09/12/17 11:15 09/12/17 11:15 Results - Labs 09/13/17 07:44 09/12/17 11:50 Abnormal Lab Results - Last 24 Hours (Table) 09/12/17 09/12/17 09/12/17 Range/Units 11:50 11:50 11:50 Glucose 216 H (74-99) mg/dL POC Glucose (mg/dL) (75-99) mg/dL Hemoglobin A1c 6.6 H (4.0-6.0) % Magnesium 1.5 L (1.6-2.3) mg/dL AST 38 H (14-36) U/L Total Creatine Kinase 277 H (30-135) U/L 09/12/17 09/12/17 09/13/17 Range/Units 16:40 20:57 07:16 Glucose (74-99) mg/dL POC Glucose (mg/dL) 127 H 157 H 147 H (75-99) mg/dL Hemoglobin A1c (4.0-6.0) % Magnesium (1.6-2.3) mg/dL AST (14-36) U/L Total Creatine Kinase (30-135) U/L Diabetes panel 09/12/17 09/12/17 Range/Units 11:50 11:50 Sodium 141 (137-145) mmol/L Potassium 4.4 (3.5-5.1) mmol/L Chloride 99 (98-107) mmol/L Carbon Dioxide 25 (22-30) mmol/L BUN 16 (7-17) mg/dL Creatinine 0.60 (0.52-1.04) mg/dL Glucose 216 H (74-99) mg/dL Hemoglobin A1c 6.6 H (4.0-6.0) % Calcium 9.9 (8.4-10.2) mg/dL AST 38 H (14-36) U/L ALT 42 (9-52) U/L Alkaline Phosphatase 79 (38-126) U/L Total Protein 8.1 (6.3-8.2) g/dL Albumin 4.7 (3.5-5.0) g/dL Calcium panel 09/12/17 Range/Units 11:50 Calcium 9.9 (8.4-10.2) mg/dL Albumin 4.7 (3.5-5.0) g/dL Pituitary panel 09/12/17 Range/Units 11:50 Sodium 141 (137-145) mmol/L Potassium 4.4 (3.5-5.1) mmol/L Chloride 99 (98-107) mmol/L Carbon Dioxide 25 (22-30) mmol/L BUN 16 (7-17) mg/dL Creatinine 0.60 (0.52-1.04) mg/dL Glucose 216 H (74-99) mg/dL Calcium 9.9 (8.4-10.2) mg/dL Adrenal panel 09/12/17 Range/Units 11:50 Sodium 141 (137-145) mmol/L Potassium 4.4 (3.5-5.1) mmol/L Chloride 99 (98-107) mmol/L Carbon Dioxide 25 (22-30) mmol/L BUN 16 (7-17) mg/dL Creatinine 0.60 (0.52-1.04) mg/dL Glucose 216 H (74-99) mg/dL Calcium 9.9 (8.4-10.2) mg/dL Total Bilirubin 0.5 (0.2-1.3) mg/dL AST 38 H (14-36) U/L ALT 42 (9-52) U/L Alkaline Phosphatase 79 (38-126) U/L Total Protein 8.1 (6.3-8.2) g/dL Albumin 4.7 (3.5-5.0) g/dL
[2017-09-13 12:20] LABS: Glucose,Whole Blood 165 mg/dL (75-99)
[2017-09-13] MEDS: CYANOCOBALAMIN 500 MCG TAB PO SCH (14:04)
--- NOTE | 2017-09-13 15:17 | PN ---
PROGRESS NOTE DATE OF SERVICE: 09/13/2017. PRESENTING COMPLAINT: Lower GI bleed. INTERVAL HISTORY: This is a patient who presents with acute severe colitis with bleeding per rectum. Abdominal cramping is a shade better, had another 4 to 5 episodes yesterday, though the amount of blood is coming down. Patient is on ice chips. Abdominal pain is a bit better. Lying in bed, tired. Has been up to the bathroom. REVIEW OF SYSTEMS: Done for constitutional, cardiovascular, GI, pulmonary; relevant findings as above. CURRENT MEDICATIONS: Reviewed that include IV Zosyn. PHYSICAL EXAMINATION: Temperature 98.1, pulse 70, respirations 18, blood pressure 153/76, pulse ox 95% on room air. GENERAL APPEARANCE: Lying in bed, tired-appearing. EYES: Pupils equal, conjunctivae normal. HEENT: External appearance of nose and ear normal, oral cavity normal. NECK: JVD not raised. Mass not palpable. RESPIRATORY: Effort normal. LUNGS: Fair entry. CARDIOVASCULAR:: First and second sounds normal. No edema. ABDOMEN: Mild diffuse tenderness. No guarding, rigidity. Liver and spleen not palpable. PSYCHIATRY: Alert and oriented x3. Mood and affect normal. INVESTIGATIONS: White count 8.9, hemoglobin 13.2. Accu-Cheks noted. ASSESSMENT: 1. Acute severe colitis with multiple episodes of bleeding per rectum affecting the transverse and descending colon, well may be ischemic, slow to respond. 2. Intermittent asthma. 3. Diabetes mellitus type 2, chronically on insulin. 4. Chronic fibromyalgia. 5. Hyperlipidemia. 6. Essential hypertension. 7. Obstructive sleep apnea, uses CPAP machine. 8. Small chronic cerebral aneurysm being followed by Dr. Coronado. PLAN: Continue patient on IV antibiotic. Keep the patient on IV and ice chips for right now. Care was discussed with the patient. Follow Accu-Cheks. MMODL / IJN: [id number] /
[2017-09-13 17:13] LABS: Glucose,Whole Blood 132 mg/dL (75-99)
[2017-09-13] MEDS: LACTATED RINGERS 1,000 ML IV SCH (17:18)
[2017-09-13 20:27] LABS: Glucose,Whole Blood 144 mg/dL (75-99)
[2017-09-13] MEDS: ATORVASTATIN 10 MG TAB PO SCH (21:18)
[2017-09-13] MEDS: INSULIN DETEMIR 100 UNIT/ML 10 ML VIAL SQ SCH (21:18)
[2017-09-14 03:13] LABS: Glucose,Whole Blood 130 mg/dL (75-99)
[2017-09-14] MEDS: LEVOTHYROXINE 125 MCG TAB PO SCH (06:54)
[2017-09-14 07:12] LABS: Glucose,Whole Blood 139 mg/dL (75-99)
[2017-09-14] MEDS: PIPERACILLIN-TAZOBACTAM 3.375 GM in DEXTROSE/WATER 1 50ML.BAG IVPB SCH ×3 (08:03→16:54)
[2017-09-14] MEDS: LACTATED RINGERS 1,000 ML IV SCH ×2 (08:03→11:58)
[2017-09-14] MEDS: INSULIN ASPART 100 UNIT/ML 1 ML 10 ML VIAL SQ SCH ×4 (08:04→22:19)
--- NOTE | 2017-09-14 08:04 | P.PN ---
Progress Note - Text Progress Note Date: 09/14/17 The patient is doing much better. Has not had any bleeding since yesterday. She is hungry. No nausea or vomiting. No abdominal pain except for tenderness. On examination the patient is afebrile. Very awake alert cheerful in no distress. Vitals are stable. Color is good. Abdomen is soft still some tenderness in the left lower quadrant with no rebound or guarding or rigidity. No mass. Hemoglobin is pending today. Impression lower GI bleed with the left lower quadrant pain and tenderness consistent with probably acute diverticulitis possible colitis by computed tomography scan. Now resolving. Recommendation. May advance her diet to full liquids. From a surgical standpoint she can be discharged home. We'll see her back in the office in a week or 2. Advised to stay on a soft liquid diet over the next to 3 days. Home by mouth antibiotics. We will need a colonoscopy electively in the next month or 2.
[2017-09-14] MEDS: ZINC SULFATE 220 MG CAP PO SCH (08:05)
[2017-09-14] MEDS: MAGNESIUM OXIDE 400 MG TAB PO SCH (08:05)
[2017-09-14] MEDS: LOSARTAN 50 MG TAB PO SCH (08:05)
[2017-09-14] MEDS: DULoxetine HCL 30 MG CAPSULE.DR PO SCH (08:05)
[2017-09-14 09:12] LABS: Basophils # (A) 0.1 k/uL (0-0.2); Basophils % (A) 1 %; Eosinophils # (A) 0.2 k/uL (0-0.7); Eosinophils % (A) 3 %; HCT 40.6 % (34.0-46.0); HGB 14.2 gm/dL (11.4-16.0); Lymphocytes # (A) 3.1 k/uL (1.0-4.8); Lymphocytes % (A) 45 %; MCH 32.2 pg (25.0-35.0); MCHC 34.8 g/dL (31.0-37.0); MCV 92.6 fL (80.0-100.0); Mean Platelet Volume 7.3; Monocytes # (A) 0.4 k/uL (0-1.0); Monocytes % (A) 5 %; Neutrophils # (A) 3.2 k/uL (1.3-7.7); Neutrophils % (A) 45 %; Platelet Count 242 k/uL (150-450); RBC 4.39 m/uL (3.80-5.40); RDW 12.9 % (11.5-15.5); WBC 7.1 k/uL (3.8-10.6)
[2017-09-14 11:49] LABS: Glucose,Whole Blood 130 mg/dL (75-99)
[2017-09-14] MEDS: CYANOCOBALAMIN 500 MCG TAB PO SCH (11:59)
[2017-09-14 16:56] LABS: Glucose,Whole Blood 111 mg/dL (75-99)
[2017-09-14 20:16] LABS: Glucose,Whole Blood 171 mg/dL (75-99)
--- NOTE | 2017-09-14 20:30 | PN ---
PROGRESS NOTE DATE OF SERVICE: September 14, 2017. PRESENT COMPLAINT: Lower GI bleed. INTERVAL HISTORY: This patient presented with acute severe colitis. Last bleeding per rectum was yesterday. Abdominal pain is getting better. Did tolerate a clear liquid diet today. Has been out of bed. REVIEW OF SYSTEMS: Done for constitutional, cardiovascular, GI, pulmonary, relevant findings as above. CURRENT MEDICATIONS: Includes IV Zosyn. PHYSICAL EXAMINATION: Temperature 97.9, pulse 74, respirations 16, blood pressure 103/66, pulse ox 93% on room air. General appearance: Lying in bed, more comfortable. Eyes pupils are equal. Conjunctivae normal. HEENT external appearance of nose and ears normal. Oral cavity normal. Neck JVD not raised. Mass not palpable. Respiratory effort normal. Lungs are clear. Cardiovascular: 1st and 2nd sounds normal. No edema. ABDOMEN: Soft. Some left lower abdominal tenderness. No guarding or rigidity. Psychiatry: Alert and oriented x3. Mood and affect normal. INVESTIGATIONS: White count 7.1, hemoglobin 14.2. ASSESSMENT: 1. Acute severe colitis, clinically improving in the tremors in the transverse and descending colon maybe well maybe ischemic improving. 2. Intermittent asthma. 3. Diabetes mellitus type 2, chronically on insulin. 4. Chronic fibromyalgia. 5. Hyperlipidemia. 6. Essential hypertension. 7. Obstructive sleep apnea uses CPAP machine. 8. Small chronic cerebral aneurysm being followed by Dr. Coronado. PLAN: We will keep the patient on IV Zosyn. Switch the patient to full liquid diet for supper if tolerated. We will move ahead to a soft plan in the morning. The patient encouraged to be out of bed. MMODL / IJN: [id number] /
[2017-09-14] MEDS: ATORVASTATIN 10 MG TAB PO SCH (22:19)
[2017-09-14] MEDS: AMOXIC-POT CLAV 875-125MG 1 EACH TAB PO SCH (22:19)
[2017-09-14] MEDS: INSULIN DETEMIR 100 UNIT/ML 10 ML VIAL SQ SCH (22:20)
[2017-09-14 23:31] VITALS: RESP 18
[2017-09-15 06:14] VITALS: BP 119/71; PULSE 74; TEMP 98
[2017-09-15] MEDS: LEVOTHYROXINE 125 MCG TAB PO SCH (06:27)
[2017-09-15 07:52] LABS: Glucose,Whole Blood 139 mg/dL (75-99)
[2017-09-15] MEDS: AMOXIC-POT CLAV 875-125MG 1 EACH TAB PO SCH (08:13)
[2017-09-15] MEDS: INSULIN ASPART 100 UNIT/ML 1 ML 10 ML VIAL SQ SCH ×2 (08:13→13:03)
[2017-09-15] MEDS: DULoxetine HCL 30 MG CAPSULE.DR PO SCH (08:13)
[2017-09-15] MEDS: LOSARTAN 50 MG TAB PO SCH (08:14)
[2017-09-15] MEDS: MAGNESIUM OXIDE 400 MG TAB PO SCH (08:14)
[2017-09-15] MEDS: ZINC SULFATE 220 MG CAP PO SCH (08:15)
[2017-09-15 08:49] LABS: Basophils # (A) 0.1 k/uL (0-0.2); Basophils % (A) 1 %; Eosinophils # (A) 0.3 k/uL (0-0.7); Eosinophils % (A) 4 %; HCT 39.4 % (34.0-46.0); HGB 13.8 gm/dL (11.4-16.0); Lymphocytes # (A) 3.2 k/uL (1.0-4.8); Lymphocytes % (A) 52 %; MCH 32.2 pg (25.0-35.0); MCV 92.1 fL (80.0-100.0); Mean Platelet Volume 7.4; Monocytes # (A) 0.3 k/uL (0-1.0); Monocytes % (A) 5 %; Neutrophils # (A) 2.2 k/uL (1.3-7.7); Neutrophils % (A) 36 %; Platelet Count 230 k/uL (150-450); RBC 4.28 m/uL (3.80-5.40); RDW 12.8 % (11.5-15.5); WBC 6.1 k/uL (3.8-10.6)
[2017-09-15] MEDS: CYANOCOBALAMIN 500 MCG TAB PO SCH (12:06)
[2017-09-15 12:41] LABS: Glucose,Whole Blood 143 mg/dL (75-99)
--- NOTE | 2017-09-16 21:59 | DS ---
DISCHARGE SUMMARY DATE OF ADMISSION: 09/12/2017. DATE OF DISCHARGE: 09/15/2017 FINAL DIAGNOSES: 1. Acute severe colitis in the transverse and descending colon; may be ischemic in nature. 2. Intermittent asthma. 3. Diabetes mellitus, type 2, chronically on insulin. 4. Chronic fibromyalgia. 5. Hyperlipidemia. 6. Essential hypertension. 7. Obstructive sleep apnea. Uses CPAP machine. 8. Chronic cerebral aneurysm, being followed by Dr. Coronado. HOSPITAL COURSE: This patient presented with acute severe colitis with bloody stools, abdominal pain. Responded well to antibiotics. By the time of discharge, symptoms had completely resolved. ABDOMEN: Soft, nontender. CONSULTATION: Dr. Worthington from General Surgery. CT scan results were as above. DISCHARGE MEDICATIONS: 1. Vitamin D3 1000 units p.o. daily. 2. Synthroid 125 mcg a day. 3. Multivitamin 1 tablet p.o. daily. 4. Fish oil 1000 mg p.o. daily. 5. Crestor 5 mg p.o. at bedtime. 6. Aspirin 81 mg p.o. daily. 7. Calcium 600 with vitamin D3 one tablet p.o. t.i.d. 8. Chlorthalidone 25 mg p.o. daily. 9. Vitamin B12 1000 mcg p.o. daily. 10.Cymbalta 30 mg p.o. daily. 11.Lantus 50 units subcutaneously at bedtime. 12.Losartan 50 mg p.o. daily. 13.Magnesium 200 mg p.o. daily. 14.Zinc 50 mg p.o. daily. 15.Metformin ER 1000 mg p.o. b.i.d. 16.Augmentin 875 one tablet q.12; 20 tablets. Diet soft, bland. Follow up with Dr. Romano on September 19, 2017. Follow up with Dr. Worthington on September 29, 2017. Discussion and discharge planning more than 35 minutes. MMODL / IJN: [id number] /
== END 2017-09-15 16:01 | disposition home or self-care (01) | DRG 391 ==
LOC: EC 10:32 → 4MS4W 14:13 → OBSVTOIN 23:46
PROVIDERS: ADMIT Hospitalist; ATTEND Hospitalist
DX: K52.9 Noninfective gastroenteritis and colitis, unspecified (principal); K57.93 Diverticulitis of intestine, part unspecified, without perforation or abscess with bleeding; I67.1 Cerebral aneurysm, nonruptured; E11.9 Type 2 diabetes mellitus without complications; M79.7 Fibromyalgia; I10 Essential (primary) hypertension; G40.909 Epilepsy, unspecified, not intractable, without status epilepticus; E66.3 Overweight; G47.33 Obstructive sleep apnea (adult) (pediatric); J45.20 Mild intermittent asthma, uncomplicated; E78.5 Hyperlipidemia, unspecified; K21.9 Gastro-esophageal reflux disease without esophagitis; Z98.890 Other specified postprocedural states; Z79.4 Long term (current) use of insulin; Z79.890 Hormone replacement therapy; Z79.899 Other long term (current) drug therapy; Z86.73 Personal history of transient ischemic attack (TIA), and cerebral infarction without residual deficits; Z99.89 Dependence on other enabling machines and devices; Z82.49 Family history of ischemic heart disease and other diseases of the circulatory system; Z88.8 Allergy status to other drugs, medicaments and biological substances; Z91.040 Latex allergy status; Z68.32 Body mass index [BMI] 32.0-32.9, adult; Z87.442 Personal history of urinary calculi; Z79.82 Long term (current) use of aspirin; Z87.891 Personal history of nicotine dependence; Z90.710 Acquired absence of both cervix and uterus
CPT/HCPCS: 36415; 74177; 80053; 82550; 82553; 83036; 83690; 83735; 84484; 85025; 85610; 85730; 86850; 86900; 86901; 93005; 96361; 96372; 96374; 96375; 99285

== ENCOUNTER → 2019-07-18 | Outpatient (CLI) | payer MEDICARE ==
--- NOTE | 2019-07-18 12:39 | CONS ---
CONSULTATION DATE OF SERVICE: 07/18/2019 A 64-year-old lady who has been followed in the [facility] for treatment of contract. Followup has been re-evaluated in Sleep Center for treatment of obstructive sleep apnea- hypopnea syndrome. Last time patient was seen in our Sleep Center in 2014 and at that time I empirically increased pressure to ensure CPAP unit. She has history of severe obstructive sleep apnea with apnea-hypopnea index 26.3. She continued to use her CPAP equipment every night but still has sleepiness during the day even while she is using her CPAP. [place] Sleepiness Scale is 12 today. Her sleep schedule from 1 am until around 7:30 a.m. Usually no problems with falling asleep, although she has TV set in bedroom. She sleeps on the side position. She wakes up from sleep 2 times with 1 episode of nocturia. She may wake up from sleep with a dry mouth, episodes of restless legs. In the morning, patient wakes up tired and falls asleep during the day. She usually takes one nap around 3 pm. [place] Sleepiness Scale is increased to 12. Her machine is old and sometimes takes off in the middle of the night. I would try to check machine. It did not start right away. The machine does not have any information about apnea-hypopnea index. CPAP pressure is 12 cm of water. PAST MEDICAL HISTORY: Positive for hypertension, TIA, diabetes mellitus, fibromyalgia, cerebral aneurysm, migraines, coronary artery disease, Med thyroiditis, vitreal detachment procedure, last episode 2 years ago. PAST SURGICAL HISTORY: Partial parathyroidectomy, , left knee arthroscopy. MEDICATIONS: Humalog, Lantus, metformin, Ventolin, losartan, levothyroxine, crystals, Cymbalta, chlorthalidone, aspirin, B12, tramsinolonel, nasal spray, calcium, magnesium, zinc and vitamin supplement. SOCIAL HISTORY: Positive for smoking, quit smoking more than more than 35 years ago. REVIEW OF SYSTEMS: Awakenings from sleep, sleepiness during the day. PHYSICAL EXAM: lady without distress, BP 122/68, HR 78, RR 16, height 5, 4, weight 198, body mass index 33.9, temperature 98.1. OROPHARYNX: Low position of soft palate, Mallampati 3. Restriction of nasal breathing bilaterally. NECK: 16-1/2 inches in circumference. ABDOMEN: Obese. LUNGS: Clear to percussion and to auscultation. Good air exchange. No wheezing or rhonchi. HEART: S1, S2 regular. No murmurs, gallops, or rubs. EXTREMITIES: No clubbing or cyanosis. LONGWALL SHEARER OPERATOR: Awake, alert, and oriented X3. Cranial nerves 2 to 7 intact. There is no fasciculation or atrophy. noted. No focal deficits observed. IMPRESSION: 1. History of severe obstructive sleep apnea-hypopnea syndrome for many years. Patient continued to use his CPAP equipment, wake up from sleep while using her CPAP because sometimes machine stopped working in the middle of the night. Still sleepy during the day. [place] Sleepiness Scale increased to 12. Patient increased her weight since previous titration for more than 15 pounds. 2. Extremely low position of soft palate. Restriction of nasal breathing. 3. Obesity, body mass index 33.9. 4. Hypertension. 5. History of transient ischemic attack. 6. Diabetes mellitus. 7. History of fibromyalgia. 8. History of cerebral aneurysm. 9. History of seizures with the last episode 2 years ago. 10.History of migraines. 11.Coronary artery disease. 12.History of Med's thyroiditis. 13.Status post vitreal detachment. 14.Status post partial parathyroidectomy. 15.Status post x2. PLAN: 1. Repeat CPAP titration for evaluation of effective CPAP pressure at the present time and also to find the best mask for the patient. 2. Losing weight. 3. Patient's CPAP unit should be replaced. 4. No driving if feeling sleepiness. Thank you very much for referring this patient for evaluation. Sincerely, Ruddy Hameed MD, PhD, FAASM Diplomat of [employer] [facility] [place] MMODL / IJN: [id number] /
== END | disposition home or self-care (01) ==
LOC: SLEEP 10:39
PROVIDERS: ATTEND Internal Medicine
DX: G47.33 Obstructive sleep apnea (adult) (pediatric) (principal); E66.9 Obesity, unspecified; Z68.33 Body mass index [BMI] 33.0-33.9, adult; I10 Essential (primary) hypertension; E11.9 Type 2 diabetes mellitus without complications; I25.10 Atherosclerotic heart disease of native coronary artery without angina pectoris; Z86.73 Personal history of transient ischemic attack (TIA), and cerebral infarction without residual deficits; Z86.39 Personal history of other endocrine, nutritional and metabolic disease; Z86.69 Personal history of other diseases of the nervous system and sense organs; Z98.890 Other specified postprocedural states; Z87.891 Personal history of nicotine dependence; Z79.84 Long term (current) use of oral hypoglycemic drugs; Z79.82 Long term (current) use of aspirin
CPT/HCPCS: 99211

== ENCOUNTER → 2020-04-10 | Outpatient (CLI) | payer MEDICARE ==
--- NOTE | 2020-04-10 19:49 | SFUN ---
SLEEP CENTER FOLLOW UP NOTE DATE OF SERVICE: 04/10/2020 65-year-old lady has been followed in Sleep Center for treatment of obstructive sleep apnea-hypopnea syndrome. Recently, patient had CPAP titration and received her new CPAP unit. Today is her 1st visit after she received new CPAP machine. The patient is able to use machine every night for the whole night. No problems with the machine. No snoring. She still sometimes feels tiredness during the day. [place] Sleepiness Scale 16. I checked CPAP unit. CPAP pressure is 9 cm of water. Usage is 27/30 nights for more than 4 hours with average usage is 7.7 hours per night. Demonstrated great compliance. Leak is 11 L/minutes. This is borderline. Apnea-hypopnea index only 0.88, which is absolutely perfect. CURRENT MEDICATIONS: Humalog, Lantus, metformin, Ventolin inhaler. Losartan, L-thyroxine, Cymbalta. PHYSICAL EXAM: Patient in no distress. BP 116/54, HR 89, RR 15, weight 190 pounds. Height 5 and 4 inches, temperature 98.3, oxygen saturation at room air 95%. Oropharynx low position of soft palate. Mallampati 3. NECK: Supple, no JVD. Thyroid is not palpable. LUNGS: Clear to percussion and to auscultation. Good air exchange. No wheezing or rhonchi. HEART: S1, S2 regular. No murmurs, gallops, or rubs. ABDOMEN: Obese. Soft and nontender. Bowel sounds are present. No organomegaly appreciated. EXTREMITIES: No clubbing or cyanosis. INTERIOR DECORATOR: Awake, alert, and oriented X3. Cranial nerves 2 to 7 intact. There is no fasciculation or atrophy. noted. No focal deficits observed. IMPRESSION: 1. Severe obstructive sleep apnea-hypopnea syndrome. Patient demonstrated great compliance with treatment benefitting from treatment, normal respiration on CPAP. 2. Obesity. 3. Hypertension. 4. History of transient ischemic attack. 5. Diabetes mellitus. 6. History of fibromyalgia. 7. History of cerebral aneurysm. 8. History of seizures, last episode about 2 years ago. 9. History of migraines. 10.Coronary artery disease. 11.History of Med's thyroiditis. 12.Status post partial parathyroidectomy. 13.Status post x2. PLAN: 1. Patient will continue to use PAP equipment every night for the whole night. 2. Sleep hygiene with regular time in bed for at least 7-1/2 to 8 hours. 3. Precautions related to driving. No driving if feeling sleepiness. 4. I will maintain all necessary prescription for PAP supplies including mask, tube, filters. 5. Watching weight. 6. No driving if feeling sleepiness. 7. Follow-up visit in 6 months or earlier if patient has any problems. Thank you very much for allowing me to participate in management of your patient, Sincerely, Ruddy Hameed MD, PhD, FAASM Diplomat of [place] [employer] [place] [employer] Insurance Producer of [facility] [place] MMODL / IJN: [id number] /
== END | disposition home or self-care (01) ==
LOC: SLEEP 13:18
PROVIDERS: ATTEND Internal Medicine
DX: G47.33 Obstructive sleep apnea (adult) (pediatric) (principal); I10 Essential (primary) hypertension; I25.10 Atherosclerotic heart disease of native coronary artery without angina pectoris; E11.9 Type 2 diabetes mellitus without complications; Z86.73 Personal history of transient ischemic attack (TIA), and cerebral infarction without residual deficits; Z87.39 Personal history of other diseases of the musculoskeletal system and connective tissue; Z86.69 Personal history of other diseases of the nervous system and sense organs; Z86.39 Personal history of other endocrine, nutritional and metabolic disease; Z98.890 Other specified postprocedural states; Z99.89 Dependence on other enabling machines and devices

== ENCOUNTER → 2020-06-16 | Outpatient (CLI) | payer MEDICARE ==
--- NOTE | 2020-06-16 15:23 | US ---
EXAMINATION TYPE: US pelvic complete plus Dopplers DATE OF EXAM: 06/16/2020 COMPARISON: None CLINICAL HISTORY: 65-year-old female R10.2 Pelvic pain x 1 month; history of diverticula; C section x 2 TECHNIQUE: Transabdominal sonographic images of the pelvis were acquired. Transvaginal sonographi c images were medically necessary to better assess the following anatomy: ovaries. Color Doppler and spectral waveform analysis of the ovarian arteries and veins. Date of LMP: approximately 10 years ago FINDINGS: EXAM MEASUREMENTS: Uterus: 6.7 x 4.0 x 2.5cm Endometrial Stripe: 0.3cm Right Ovary: 2.3 x 2.1 x 1.5cm Left Ovary: 2.0 x 1.2 x 1.4cm 1. Uterus: Anteverted; tiny sliver of fluid seen in BOBBI = 0.7 x 0.3 x 0.1cm; C section scar seen in BOBBI. Punctate cervical calcification suggests sequela of prior infection or instrumentation. 2. Endometrium: thickness is wnl for post menopause 3. Right Ovary: appears wnl and only seen TA US 4. Left Ovary: appears wnl Bilateral ovarian color flow is demonstrated. Limited Doppler assessment. Both ovaries are small in s ize. Satisfactory venous flow on both sides. 5. Bilateral Adnexa: wnl 6. Posterior cul-de-sac: wnl IMPRESSION: 1. Prior scar. Tiny sliver of fluid along the lower uterine segment measuring 7 mm. Punctat e cervical calcifications suggests sequela of prior infection or instrumentation. 2. Endometrial stripe measuring 3 mm, acceptable given postmenopausal status 3. Small, postmenopausal ovaries.
== END | disposition home or self-care (01) ==
LOC: RADUSWWP 13:03
PROVIDERS: ATTEND Obstetrics & Gynecology
DX: R10.2 Pelvic and perineal pain (principal); Z78.0 Asymptomatic menopausal state
CPT/HCPCS: 76830; 76856

== ENCOUNTER → 2020-10-30 | Outpatient (CLI) | payer MEDICARE ==
--- NOTE | 2020-10-30 22:21 | SFUN ---
SLEEP CENTER FOLLOW UP NOTE DATE OF SERVICE: 10/30/2020 A 65-year-old lady has been followed in Sleep Center for treatment of obstructive sleep apnea-hypopnea syndrome. Patient continued to use her CPAP equipment every night for the whole night, She sleeps a sufficient amount of hours from about 10 to 10:30 p.m. until 7:30 am, but she still continues to feel sleepiness during the day in quite significant range according to patient. Her [place] Sleepiness Scale today significantly increased to 17 and according to her, she could fall asleep anytime of the day if she is not active at the moment. I checked her CPAP unit. CPAP pressure is 9 cm of water. Usage is 27/30 nights for more than 4 hours. Average usage 8 hours per night. Leak is only 13 L/minute. Apnea- hypopnea index is 0.8, which is absolutely perfect. MEDICATIONS: Metformin, insulin including Humalog and Lantus, Ventolin inhaler, losartan, L- thyroxine, Cymbalta. PHYSICAL EXAMINATION: GENERAL: Patient in no distress. BP 81/62, HR 84, RR 12, height 5 feet 4.5 inches, weight 194.8 pounds, body mass index 33.1. Temperature 97.6. Oxygen saturation at room air 91%. HEENT: PERRLA, EOMI, evaluation of oropharynx low position of soft palate, Mallampati 3. NECK: Supple, no JVD. Thyroid is not palpable. LUNGS: Clear to percussion and to auscultation. Good air exchange. No wheezing or rhonchi. HEART: S1, S2 regular. No murmurs, gallops, or rubs. ABDOMEN: Slightly obese. Soft and nontender. Bowel sounds are present. No organomegaly appreciated. EXTREMITIES: No clubbing or cyanosis. SINTER MACHINE OPERATOR: Awake, alert, and oriented X3. Cranial nerves 2 to 7 intact. There is no fasciculation or atrophy. noted. No focal deficits observed. IMPRESSION: 1. Obstructive sleep apnea-hypopnea syndrome. Patient demonstrated 100% compliance with treatment benefitting from treatment. Respiration is totally normal on CPAP. 2. Significant excessive daytime sleepiness. [place] Sleepiness Scale increased to 17. According to patient she could take naps any time. Differential diagnosis should include additional diagnosis of hypersomnia or narcolepsy without cataplexy. 3. Obesity, BMI 33.1. 4. History of hypertension, on treatment with medication. 5. History of transient ischemic attack. 6. Diabetes mellitus. 7. History of fibromyalgia. 8. History of cerebral aneurysms. 9. History of seizures, last episode about 2 years ago. 10.History of migraines. 11.Coronary artery disease. 12.History of Med's thyroiditis. 13.Status post partial parathyroidectomy. 14.Status post C-sections x2. PLAN: 1. The patient needs multiple sleep latency test for objective evaluation of her symptoms of excessive daytime sleepiness and if necessary subsequently possibly pharmacotherapy. We will proceed with the CPAP night on the pressure 9 cm of water with multiple sleep latency test. 1. Sleep hygiene with regular time in bed for at least 7-1/2 to 8 hours. 2. Precautions related to driving. No driving if feeling sleepiness. 3. I will maintain all necessary prescription for PAP supplies including mask, tube, filters. 4. Watching weight. 5. I will see patient after multiple sleep latency test to discuss results and plan. Thank you very much for allowing me to participate in management of your patient. Sincerely, Ruddy Hameed MD, PhD, FAASM Diplomat of [employer] [employer] [employer] Residential Case Manager of [facility] [place] MMODL / IJN: [id number] /
== END ==
LOC: SLEEP 09:54
PROVIDERS: ATTEND Internal Medicine
DX: G47.33 Obstructive sleep apnea (adult) (pediatric) (principal); E66.9 Obesity, unspecified; I10 Essential (primary) hypertension; E11.9 Type 2 diabetes mellitus without complications; I25.110 Atherosclerotic heart disease of native coronary artery with unstable angina pectoris; Z68.31 Body mass index [BMI] 31.0-31.9, adult; Z86.73 Personal history of transient ischemic attack (TIA), and cerebral infarction without residual deficits; Z87.39 Personal history of other diseases of the musculoskeletal system and connective tissue; Z86.79 Personal history of other diseases of the circulatory system; Z86.69 Personal history of other diseases of the nervous system and sense organs; Z86.39 Personal history of other endocrine, nutritional and metabolic disease; Z98.890 Other specified postprocedural states; Z99.81 Dependence on supplemental oxygen; Z79.4 Long term (current) use of insulin; Z91.040 Latex allergy status
CPT/HCPCS: 99211

== ENCOUNTER → 2021-03-19 | Outpatient (CLI) | payer MEDICARE ==
--- NOTE | 2021-03-19 18:58 | SFUN ---
SLEEP CENTER FOLLOW UP NOTE DATE OF SERVICE: 03/19/2021 This 66-year-old lady has been followed in Sleep Center for treatment of obstructive sleep apnea-hypopnea syndrome and to discuss results of recent tests, which include night with CPAP with a following multiple sleep latency test. Sleep study results were discussed with the patient in detail. During titration night at the pressure 7 and 8, the patient's respiration was totally normal, apnea-hypopnea index was zero, with oxygen level in normal range. The patient slept for 5 hours 41 minutes. Sleep efficiency was slightly below normal. Then the patient had naps on the following day MSLT test which showed that the patient fell asleep on all naps and mean sleep latency was 6.3 minutes, which is definitely short. No sleep-onset REM periods have been documented. At present, the patient continues to use her CPAP equipment every night for the whole night. PHYSICAL EXAMINATION: GENERAL: Pleasant patient in no distress. VITAL SIGNS: BP 128/70, HR 91, RR 15, height 5 feet 3-3/4 inches, weight 193.8 pounds, body mass index 33.4, temperature 95.5, oxygen saturation at room air 95%. HEENT: PERRLA, EOMI, evaluation of oropharynx showed tongue protrudes midline. Low position of soft palate; Mallampati III. NECK: Supple, no JVD. Thyroid is not palpable. LUNGS: Clear to percussion and to auscultation. Good air exchange. No wheezing or rhonchi. HEART: S1, S2 regular. No murmurs, gallops, or rubs. ABDOMEN: Obese. EXTREMITIES: No clubbing or cyanosis. REGULATORY AFFAIRS STRATEGY SPECIALIST: Awake, alert, and oriented X3. Cranial nerves 2 to 7 intact. There is no fasciculation or atrophy. noted. No focal deficits observed. IMPRESSION: 1. Obstructive sleep apnea-hypopnea syndrome. Normal respiration on CPAP, benefitting from treatment. 2. Significant excessive daytime sleepiness while using her CPAP, confirmed by multiple sleep latency test. Mean sleep latency 6.3 minutes. No sleep-onset REM periods have been documented. Differential diagnosis should include sleepiness still related to obstructive sleep apnea which sometimes presents idiopathic hypersomnia and narcolepsy, although no sleep-onset REM periods have been documented. 3. Obesity. 4. History of hypertension. 5. History of transient ischemic attack. 6. Diabetes mellitus. 7. History of fibromyalgia. 8. History of cerebral aneurysm. 9. History of seizures. Last episode about 2 years ago. 10.History of migraines. 11.Coronary artery disease. 12.History of Med's thyroiditis. 13.Status post partial parathyroidectomy. 14.Status post x2. 15.Significant periodic limb movements have been documented during the sleep study: 81.9 per hour with 14.9 microarousals per hour. PLAN: 1. Please check iron profile, including ferritin level. Low level of iron may increase risk for periodic limb movements. Diabetes also may increase risk for periodic limb movements. 2. Will do a trial with the smallest dosage of dopaminergic agonist Mirapex 0.125 mg 1- 2 tablets at bedtime for periodic limb movements with a goal to stop periodic limb movements, again with the goal to make the patient more alert during the day. 3. After trial with medication for the legs, we will start the patient on modafinil 200 mg in the morning to prevent sleepiness. 4. Patient will continue to use PAP equipment every night for the whole night. 5. Sleep hygiene with regular time in bed for at least 7-1/2 to 8 hours. 6. Precautions related to driving. No driving if feeling sleepiness. 7. I will maintain all necessary prescription for PAP supplies including mask, tube, filters. 8. Watching weight. 9. Follow-up visit in 3 months or earlier if patient has any problems. Thank you very much for allowing me to participate in the management of your patient. Sincerely, Ruddy Hameed MD, PhD, FAASM Diplomat of [place] [employer] Sleep Medicine Board of [place] [employer] Salvage Cutter of [facility] [place] MMMELITAL / REYESN: [id number] /
== END ==
LOC: SLEEP 13:12
PROVIDERS: ATTEND Internal Medicine
DX: G47.33 Obstructive sleep apnea (adult) (pediatric) (principal); G47.61 Periodic limb movement disorder; E66.9 Obesity, unspecified; I10 Essential (primary) hypertension; Z86.73 Personal history of transient ischemic attack (TIA), and cerebral infarction without residual deficits; E11.9 Type 2 diabetes mellitus without complications; Z86.69 Personal history of other diseases of the nervous system and sense organs; I25.10 Atherosclerotic heart disease of native coronary artery without angina pectoris; Z86.39 Personal history of other endocrine, nutritional and metabolic disease; Z90.89 Acquired absence of other organs; Z87.39 Personal history of other diseases of the musculoskeletal system and connective tissue; Z87.59 Personal history of other complications of pregnancy, childbirth and the puerperium; Z99.89 Dependence on other enabling machines and devices; Z68.33 Body mass index [BMI] 33.0-33.9, adult; Z87.891 Personal history of nicotine dependence; Z88.8 Allergy status to other drugs, medicaments and biological substances; Z91.040 Latex allergy status

== ENCOUNTER → 2021-10-21 | Outpatient (CLI) | payer MEDICARE ==
[2021-10-21 14:34] LABS: African American GFR (CKD) >90 (>60 ml/min/1.73 sqM); Blood Urea Nitrogen 17 mg/dL (7-17); Non-African American GFR(CKD) 79 (>60 ml/min/1.73 sqM)
--- NOTE | 2021-10-21 20:41 | CT ---
EXAMINATION TYPE: CT abdomen pelvis w con DATE OF EXAM: 10/21/2021 COMPARISON: CT dated 09/12/2017 HISTORY: DVTRCLI OF INTEST, PART UNSP, W/O PERF OR ABSCESS CT DLP: 1399.0 mGycm Automated exposure control for dose reduction was used. TECHNIQUE: Helical acquisition of images was performed from the lung bases through the pelvis. CONTRAST: Performed with Oral Contrast and with IV Contrast, patient injected with 100ml mL of Isovue 300. FINDINGS: LUNG BASES: Bilateral basal linear pulmonary atelectasis. LIVER/GB: Enlarged liver measuring 19 cm with suspected hepatic steatosis. No definite hepatic focal lesion. The gallbladder is not distended. PANCREAS: No significant abnormality is seen. SPLEEN: No significant abnormality is seen. ADRENALS: No significant abnormality is seen. KIDNEYS: 3 mm nonobstructing calculus seen at the lower pole of right kidney, otherwise unremarkable kidneys. FREE AIR: No free air is visualized. RETROPERITONEAL ADENOPATHY: None visualized REPRODUCTIVE ORGANS: No gross uterine or adnexal mass. URINARY BLADDER: Not completely distended. PELVIC ADENOPATHY: No pathologically enlarged pelvic lymph nodes. OSSEOUS STRUCTURES: Suspected osteopenia. No gross aggressive bone lesion. BOWEL: Unremarkable stomach, duodenum and small bowel. Colonic diverticulosis without evidence of ac port gam[place] diverticulitis. [id number] fecal loading of the colon. OTHER: Scattered arterial atherosclerotic calcifications. No sizable ascites. IMPRESSION: Colonic diverticulosis without evidence of acute diverticulitis. Incidental findings as described abo ve.
== END | disposition home or self-care (01) ==
LOC: RADCTMAIN 13:55
PROVIDERS: ATTEND Student in an Organized Health Care Education/Training Program
DX: K57.30 Diverticulosis of large intestine without perforation or abscess without bleeding (principal)
CPT/HCPCS: 82565; 84520; 74177; 36415; Q9967

== ENCOUNTER → 2022-01-06 | Outpatient (CLI) | payer MEDICARE ==
--- NOTE | 2022-01-06 13:36 | P.PN ---
Subjective DATE: 01/06/2022 FOLLOW UP VISIT. Patient with obstructive sleep apnea hypopnea syndrome return to sleep center for follow-up visit. Information from previous visit have been reviewed. Patient is using PAP equipment every night for the whole night, getting PAP supplies in time. The patient does not have significant problems with the mask, PAP unit and humidification. Patient is on treatment with modafinil 200 mg in the morning for excessive daytime sleepiness. With medication she feels better. But recently again developed more sleepiness . [place] sleepiness scale is increased to 12.. I checked information from PAP unit. PAP unit pressure 9 cm H2O. Usage is 100 % for more then 4 hours, average 7.2 hours per night. Leak is 35 l/m, which is in increased range. Apnea Hypopnea Index is 0.9 , which is normal. MEDICATIONS:1. Metformin 2. Insulin 3. Losartan 4. Ventolin 5. Thyroxine 6. Cymbalta 7. Modafinil 200 mg every morning During physical exam: GENERAL: A pleasant patient without any distress. VITAL SIGNS: BP 121/65, HR 88, RR 16, weight 178.8, temperature 96.7, oxygen saturation at room air 95 % . HEENT: PERRLA, EOMI.low position of soft palate, Mallapati 3 . NECK: Supple. No JVD. LUNGS: Clear to percussion and to auscultation. Good air exchange. No wheezing or rhonchi. HEART: S1, S2 regular. ABDOMEN: Soft and nontender.[] EXTREMITIES: No clubbing or cyanosis. JOB SETTER: Awake, alert, and oriented x3. No focal deficit. Impressions: 1. Obstructive sleep apnea-hypopnea syndrome. Patient demonstrated great c ompliance with treatment, benefiting from treatment. 2. Patient still feels some sleepiness on afternoon time. [place] sleepiness scale increased to 12.. 3. Hypertension. 4. History of TIA. 5. History of coronary artery disease. 6. Diabetes mellitus. 7. History of fibromyalgia. 8. History of cerebral aneurysm. 9. History of surgeries last episode more than 2-1/2 years ago. 10. History of migraines. 11. History of Med thyroiditis. 12. Status post partial parathyroidectomy. Plan: 1. Continue using PAP equipment every night for the whole night. 2. To change air filter at least 1-2 times per month. 3. PAP unit should stay lower then position of the head. 4. Advised patient to remove all remaining water from humidifier canister daily and make it dry after each usage. Refill canister with fresh distilled water before each usage. 5. Sleep hygiene with regular time in bed for at least 8 hours. 6. Precautions related to driving. No driving if feel any sleepiness. 7. I will maintain prescription for PAP supplies including mask, tube, filters. 8. Follow up visit in 6 months or earlier if patient has any problems. 9. Watching weight. 10. We will increase the dose of modafinil to 300 mg in the morning. Thank you very much for allowing me to participate in the management of your patient. Ruddy Hameed MD, PhD, FAASM. Diplomat of [place] [employer], Sleep Medicine Board by [place] [employer] Credit Representative of [facility] [place]
== END | disposition home or self-care (01) ==
LOC: SLEEP 13:04
PROVIDERS: ATTEND Internal Medicine
DX: G47.33 Obstructive sleep apnea (adult) (pediatric) (principal); I10 Essential (primary) hypertension; I25.10 Atherosclerotic heart disease of native coronary artery without angina pectoris; E11.9 Type 2 diabetes mellitus without complications; G43.909 Migraine, unspecified, not intractable, without status migrainosus; E89.0 Postprocedural hypothyroidism; Z98.890 Other specified postprocedural states; Z86.73 Personal history of transient ischemic attack (TIA), and cerebral infarction without residual deficits; Z86.79 Personal history of other diseases of the circulatory system; Z87.39 Personal history of other diseases of the musculoskeletal system and connective tissue; Z79.84 Long term (current) use of oral hypoglycemic drugs; Z79.4 Long term (current) use of insulin; Z79.899 Other long term (current) drug therapy; Z79.890 Hormone replacement therapy; Z87.891 Personal history of nicotine dependence; Z88.8 Allergy status to other drugs, medicaments and biological substances; Z91.040 Latex allergy status